=== PATIENT | female | born 1970 | race Caucasian/White ===

== ENCOUNTER 2017-08-22 16:32 | Inpatient (IN) | payer SELFPAY ==
[~2017-08-22] VITALS: Ht 162.6 cm; Wt 105.4 kg
[2017-08-22] MEDS ORDERED: ASPIRIN 81 MG TAB.CHEW PO ONE (17:30)
[2017-08-22] MEDS ORDERED: LORazepam 2 MG/ML VIAL IV ONE (17:30)
[2017-08-22] MEDS ORDERED: 0.9 % SODIUM CHLORIDE 10 ML DISP.SYRIN. IV PRN (17:30)
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
[2017-08-22 18:08] LABS: BASO # 0.1 x10^3/uL (0.0-0.2); BASO % 1 % (0-3); EOS # 0.1 x10^3/uL (0.0-0.7); EOS % 2 % (0-3); HEMATOCRIT 40.8 % (36.0-47.0); LYMPH # 1.7 x10^3/uL (1.0-4.8); LYMPH % 29 % (24-48); MEAN CORPUSCULAR HEMOGLOBIN 31 pg (25-35); MEAN CORPUSCULAR HGB CONC 34 g/dL (31-37); MEAN CORPUSCULAR VOLUME 91 fL (79-100); MONO # 0.4 x10^3/uL (0.0-1.1); MONO % 7 % (0-9); NEUT # 3.8 x10^3uL (1.8-7.7); NEUT % 62 % (31-73); PLATELET COUNT 207 x10^3/uL (140-400); RED BLOOD COUNT 4.49 x10^6/uL (3.50-5.40); RED CELL DISTRIBUTION WIDTH 12.9 % (11.5-14.5); WHITE BLOOD COUNT 6.1 x10^3/uL (4.0-11.0)
[2017-08-22] MEDS: IV NORMAL SALINE 1,000ML 1,000 ML IV SCH (18:14)
--- NOTE | 2017-08-22 18:21 | RAD ---
Indication: Shortness of breath, cough. TECHNIQUE: PA and lateral views of the chest COMPARISON: None FINDINGS: Heart is normal in size. Lungs are clear. No pneumothorax or pleural effusion. Visualized bony thorax is within normal limits. IMPRESSION: No acute cardiopulmonary process. Electronically signed by: Uriah Garvey DO (08/22/2017 6:18 PM) [facility]
[2017-08-22 18:27] LABS: ALBUMIN 4.3 g/dL (3.4-5.0); ALK PHOS 88 U/L (46-116); ALT (SGPT) 20 U/L (14-59); ANION GAP 10 (6-14); AST (SGOT) 15 U/L (15-37); BLOOD UREA NITROGEN 9 mg/dL (7-20); CALCIUM 10.3 mg/dL (8.5-10.1); CARBON DIOXIDE 29 mmol/L (21-32); CHLORIDE 101 mmol/L (98-107); CREATININE 0.8 mg/dL (0.6-1.0); DIRECT BILIRUBIN 0.3 mg/dL (0.0-0.2); GFR 77.2; GLUCOSE 87 mg/dL (70-99); LIPASE 197 U/L (73-393); POTASSIUM 3.2 mmol/L (3.5-5.1); SODIUM 140 mmol/L (136-145); TOTAL PROTEIN 7.6 g/dL (6.4-8.2)
[2017-08-22] MEDS ORDERED: ESCITALOPRAM OX20 MG PO (19:04)
[2017-08-22] MEDS ORDERED: TRAZ50TA15 PO (19:05)
[2017-08-22] MEDS ORDERED: BUSP15TA PO (19:06)
[2017-08-22] MEDS ORDERED: ALPR0.254 PO (19:06)
[2017-08-22] MEDS ORDERED: PANT40TA5 PO (19:07)
[2017-08-22] MEDS ORDERED: LOSA1TAB19 PO (19:07)
[2017-08-22] MEDS ORDERED: ONDANSETRON PF 4 MG/2 ML VIAL. IV PRN (20:00)
[2017-08-22] MEDS ORDERED: BARIUM SULFATE 2.1% 450 ML SUSP PO ONE ×2 (20:15)
[2017-08-22] MEDS ORDERED: POTASSIUM CHLORIDE 20 MEQ/15 ML ORAL LIQUID. PO ONE (20:15)
[2017-08-22 21:09] LABS: BILIRUBIN,URINE NEG (NEG); CLARITY,URINE CLEAR; COLOR,URINE YELLOW; GLUCOSE,URINE NEG (NEG); NITRITE,URINE NEG (NEG); UROBILINOGEN,URINE 0.2 mg/dL (0.2 mg/dL)
[2017-08-22 21:10] LABS: BACTERIA,URINE 0 /HPF (0-FEW); RBC,URINE 0 /HPF (0-2); SQUAMOUS EPITHELIAL CELL,UR OCC /LPF; WBC,URINE OCC /HPF (0-4)
--- NOTE | 2017-08-22 22:06 | RAD ---
Indication:Epigastric abdominal pain and nausea. History of breast, uterine and skin cancer. TECHNIQUE: CT abdomen chest, and pelvis without IV contrast with multiplanar reformats. COMPARISON: None FINDINGS: Limited exam due to lack of IV contrast. CT CHEST: 3.7 x 3.7 cm low attenuating nodule is seen in the right thyroid lobe. Heart is normal in size. No pericardial or pleural effusion. No axillary, mediastinal adenopathy. Evaluation of hilar lymph nodes limited due to lack of IV contrast. Lungs are clear. CT abdomen and pelvis: Noncontrast appearance of the liver, spleen, gallbladder, pancreas, adrenals and kidneys is within normal limits. No retroperitoneal or pelvic adenopathy. No bowel obstruction. Normal appendix. Urinary bladder within normal limits. Status post hysterectomy. No solid adnexal lesions. No free pelvic fluid. No suspicious bony lesion. IMPRESSION: Limited exam due to lack of IV contrast. 1. Low attenuating right thyroid lobe lesion may represent a large colloid cyst. Nonemergent ultrasound of the thyroid recommended. 2. No acute findings. Electronically signed by: Uriah Garvey DO (08/22/2017 10:02 PM) [facility]
[2017-08-22 22:26] VITALS: BP 134/73
[2017-08-22] MEDS ORDERED: DIPH25CA58 PO (23:04)
[2017-08-22] MEDS ORDERED: NAPR220T70 PO (23:04)
[2017-08-22] MEDS: traZODone 50 MG TABLET. PO SCH (23:40)
[2017-08-22] MEDS: busPIRone 15 MG TABLET. PO SCH (23:41)
[2017-08-22] MEDS: MORPHINE SULFATE 4 MG/ML DISP.SYRIN. IV PRN (23:44)
[2017-08-22] MEDS ORDERED: CITALOPRAM 20 MG TABLET. PO SCH (23:45)
[2017-08-23] MEDS ORDERED: PNEUMOCOCCAL VAX SCREEN. MC ONE (00:30)
[2017-08-23] MEDS: MORPHINE SULFATE 4 MG/ML DISP.SYRIN. IV PRN ×4 (01:55→14:44)
[2017-08-23 05:49] VITALS: BP 135/65
[2017-08-23 06:37] LABS: BASO % 1 % (0-3); EOS # 0.1 x10^3/uL (0.0-0.7); EOS % 2 % (0-3); HEMOGLOBIN 12.8 g/dL (12.0-15.5); LYMPH # 2.1 x10^3/uL (1.0-4.8); LYMPH % 40 % (24-48); MEAN CORPUSCULAR HEMOGLOBIN 31 pg (25-35); MEAN CORPUSCULAR HGB CONC 34 g/dL (31-37); MEAN CORPUSCULAR VOLUME 92 fL (79-100); MONO # 0.5 x10^3/uL (0.0-1.1); MONO % 9 % (0-9); NEUT # 2.5 x10^3uL (1.8-7.7); NEUT % 48 % (31-73); PLATELET COUNT 193 x10^3/uL (140-400); RED BLOOD COUNT 4.11 x10^6/uL (3.50-5.40); RED CELL DISTRIBUTION WIDTH 13.3 % (11.5-14.5); WHITE BLOOD COUNT 5.2 x10^3/uL (4.0-11.0)
[2017-08-23 06:43] LABS: CALCIUM 9.4 mg/dL (8.5-10.1); CREATININE 0.7 mg/dL (0.6-1.0); GFR 90.1; POTASSIUM 3.8 mmol/L (3.5-5.1)
[2017-08-23] MEDS: PANTOPRAZOLE 40 MG TABLET. PO SCH (08:32)
[2017-08-23] MEDS: busPIRone 15 MG TABLET. PO SCH ×2 (08:32→20:30)
[2017-08-23] MEDS: LOSARTAN 50 MG TABLET. PO SCH (08:34)
[2017-08-23] MEDS: hydroCHLOROthiazide 12.5 MG CAPSULE PO SCH (08:35)
[2017-08-23] MEDS ORDERED: PNEUMOC CONJ VACC 23-VALENT 0.5 ML VIAL. VAX IM ONE (09:00)
[2017-08-23] MEDS ORDERED: CITALOPRAM 20 MG TABLET. PO SCH (09:00)
[2017-08-23 10:24] VITALS: BP 117/69
[2017-08-23] MEDS: ALPRAZolam 0.25 MG TABLET PO PRN (14:06)
--- NOTE | 2017-08-23 14:26 | EKG ---
[address] [address] Test Date: 2017-08-22 Test Time: 16:51:06 Pat Name: BETY MUNGUIA Department: Room: 120 A Gender: F [employer]: : 1970 Requested By: BILLIE OZUNA Order Number: [id number] Reading MD: Jonah William MD Measurements Intervals [place] Rate: 74 P: 57 KS: 208 QRS: 0 QRSD: 100 T: 21 QT: 392 QTc: 440 Interpretive Statements SINUS RHYTHM Electronically Signed On 08-24-2017 16:41:05 CDT by Jonah William MD
[2017-08-23] MEDS ORDERED: MORPHINE SULFATE 4 MG/ML DISP.SYRIN. IV PRN (14:45)
[2017-08-23 14:56] VITALS: BP 121/76
--- NOTE | 2017-08-23 15:15 | HP ---
ADMIT DATE: 08/23/2017 HISTORY OF PRESENT ILLNESS: The patient is a 47-year-old female patient, who came to the Emergency Room with a complaint of chest pain that described mostly on the left side radiating to the left shoulder and left arm. She rated the pain as 6/10 in severity, but denied any nausea or vomiting. Denied any diaphoresis. Did complain of shortness of breath and feel dizzy. She was seen in the Emergency Room and was extensively investigated. Her EKG showed that she was in sinus rhythm with heart rate of first-degree AV block. She has left atrial enlargement and left axis deviation and also an old Q-waves in the anterior leads, which is likely from the old myocardial infarction. However, there are no ST segment changes consistent with acute cardiac ischemia. Her first set of cardiac enzyme was normal. The patient was admitted to do 2 more sets of cardiac enzyme and to consult the cardiology team. PAST MEDICAL HISTORY: Significant for rheumatoid arthritis, systemic lupus erythematosus, hypertension. She has cancer of the uterus, cervix, breast, skin and brain. She apparently metastatic brain tumor, treated with radiation therapy. She also has a history of pericarditis and according to her myocardial infarction in 1997. PAST SURGICAL HISTORY: Significant for hysterectomy, tonsillectomy, adenoidectomy, 4 , lumpectomy, 2 dental surgeries and laryngotomy x 5. ALLERGIES: She is allergic to IODINATED CONTRAST, ORAL AND IV DYE, PENICILLIN, SULFA, ACETAMINOPHEN, BANANA, CIPROFLOXACIN, CLARITHROMYCIN, STRAWBERRY. FAMILY HISTORY: She has 2 brothers, who are younger. Her youngest brother has skin cancer x 3 and he is also known to have . Her father is still alive and is known to have diabetes, hypertension, rheumatoid arthritis, and hyperlipidemia. Her mother is still alive, has diabetes, hypertension, osteoarthritis and hyperlipidemia. SOCIAL HISTORY: She is , has 2 sons and 2 daughters. She never smoked, does not drink alcohol or use any drugs. She is working for the [employer] contracted with [employer]. REVIEW OF SYSTEMS: The patient denied any blurring of vision, cataract, glaucoma or macular degeneration. Denied any earache, tinnitus or sensorineural deafness. Denied any nosebleeds, stuffy nose or postnasal drip. Denied any sore throat, sore tongue, toothache, hoarseness of voice or difficulty swallowing. Denied any nausea, vomiting, diarrhea or constipation. Denied any hematemesis, melena or hematochezia. Denied any dysuria, frequency or hematuria. Did may have chest pain. No cough or phlegm. Did complain of shortness of breath. Denied any orthopnea or paroxysmal dyspnea. Denied any cough, phlegm or hemoptysis. OBJECTIVE: GENERAL: On examining her, she looked well and was clearly in no apparent respiratory distress, no pallor, jaundice, cyanosis, or thyromegaly. No jugular venous distension. No limb edema. VITAL SIGNS: Her heart rate was 86 and blood pressure 141/61, temperature was 98, respiratory rate was 16 and oxygen saturation was 100% on room air. HEAD, EYES, EARS, NOSE AND THROAT: Showed normocephalic, atraumatic. NECK: Supple. HEART: Showed normal first and second heart sounds with no gallop, rub or murmur. CHEST: Clear to auscultation. No crepitation or rhonchi. ABDOMEN: Distended, soft, nontender. NEUROLOGIC: She is awake, alert, responding appropriately. All cranial nerves intact. EXTREMITIES: She moves extremities without difficulty. She ambulates without assistance or assistive devices. While in the Emergency Room, she had lab work done showed a white cell count of 6100, hemoglobin 14, hematocrit 41, MCV 91, and platelet count 107,000. Her chemistry showed a serum sodium 140, potassium 3.2, chloride 101, bicarbonate 29, anion gap of 10, BUN 9, creatinine 0.9, estimated GFR was 77, glucose 87, calcium was 10.3, magnesium was 2. Total bilirubin 2. However, AST, ALT, alkaline phosphatase were normal. Her troponin was less than 0.017 and total protein was 7.6, albumin was 4.3. Her D-dimer was 0.26. Urinalysis was essentially unremarkable. Her EKG showed that she has in sinus rhythm with prolonged MN interval. Chest x-ray showed no evidence of any acute cardiopulmonary process. CT scan of the chest, abdomen and pelvis showed that there is low attenuating right thyroid lobe lesions were present a large colloid cyst, nonemergent ultrasound and thyroid recommended no acute finding. Plan is to admit the patient to do 2 more sets of cardiac enzyme, consult the Cardiology and decide on further management accordingly. EMILY GLOVER MD DR: Diane JOB#: [id number] / [id number]
[2017-08-23 19:13] VITALS: BP 129/69
[2017-08-23] MEDS: traZODone 50 MG TABLET. PO SCH (20:30)
[2017-08-23] MEDS ORDERED: ESCITALOPRAM 20MG TAB PO SCH (21:00)
[2017-08-23] MEDS: ACETAMINOPHEN 325 MG TABLET PO PRN (21:36)
[2017-08-23 23:01] VITALS: BP 107/57
[2017-08-24] MEDS: ACETAMINOPHEN 325 MG TABLET PO PRN (03:47)
[2017-08-24 05:04] VITALS: BP 114/65
[2017-08-24] MEDS: ALPRAZolam 0.25 MG TABLET PO PRN (06:13)
[2017-08-24] MEDS: busPIRone 15 MG TABLET. PO SCH (08:24)
[2017-08-24] MEDS: LOSARTAN 50 MG TABLET. PO SCH (08:24)
[2017-08-24] MEDS: hydroCHLOROthiazide 12.5 MG CAPSULE PO SCH (08:25)
[2017-08-24] MEDS: PANTOPRAZOLE 40 MG TABLET. PO SCH (08:25)
[2017-08-24] MEDS ORDERED: traMADol 50 MG TABLET PO PRN (09:45)
[2017-08-24] MEDS ORDERED: diphenhydrAMINE HCL 25 MG CAPSULE PO PRN (09:45)
[2017-08-24 10:59] VITALS: BP 147/74
--- NOTE | 2017-08-24 13:05 | CARD ---
MR#: [id number] Date of Study: 08/24/2017 Ordering Physician: ESTEFANY TORRES, Referring Physician: EMILY GLOVER, Tech: CHRIS Marrufo APPROVED REPORT EXAM: Two-dimensional and M-mode echocardiogram with Doppler and color Doppler. Other Information Quality : AverageHR: 60bpm INDICATION Chest Pain 2D DIMENSIONS RVDd3.2 (2.9-3.5cm)Left Atrium(2D)3.5 (1.6-4.0cm) IVSd1.1 (0.7-1.1cm)Aortic Root(2D)2.7 (2.0-3.7cm) LVDd4.7 (3.9-5.9cm)LVOT Diameter2.0 (1.8-2.4cm) PWd1.4 (0.7-1.1cm)LVDs2.5 (2.5-4.0cm) FS (%) 46.5 %SV81.2 ml LVEF(%)77.9 (>50%) Aortic Valve AoV Peak Juve.151.7cm/sAoV VTI36.9cm AO Peak GR.9.2mmHgLVOT Peak Juve.134.5cm/s LVOT VTI 31.86cmAO Mean GR.5mmHg ANGELA (VMAX)2.55gn5MLO (VTI)2.71cm2 Mitral Valve MV E Gucimpkd602.6cm/sMV A Velocity0.1cm/s E/A Vsnhl4763.0 Pulmonary Vein S1 Qcmtblij23.8cm/sD2 Uljnvahz43.9cm/s LEFT VENTRICLE The left ventricle is normal size. There is mild hypertrophy of the LVPW. The left ventricular systol ic function is normal and the ejection fraction is within normal range. EF 65% There is normal LV seg mental wall motion. The left ventricular diastolic function and filling is normal for age. RIGHT VENTRICLE The right ventricle is normal size. The right ventricular systolic function is normal. ATRIA The left atrium size is normal. The right atrium size is normal. The interatrial septum is intact wit h no evidence for an atrial septal defect or patent foramen ovale as noted on 2-D or Doppler imaging. AORTIC VALVE The aortic valve is thickened but opens well. Doppler and Color Flow revealed no significant aortic r egurgitation. There is no significant aortic valvular stenosis. There is no aortic valvular vegetatio n. MITRAL VALVE The mitral valve is thickened but opens well. There is no evidence of mitral valve prolapse. There is no mitral valve stenosis. Doppler and Color-flow revealed trace to mild mitral regurgitation. TRICUSPID VALVE The tricuspid valve is not well visualized. Doppler and Color Flow revealed no tricuspid valve regurg itation noted. There is no tricuspid valve prolapse or vegetation. There is no tricuspid valve stenos is. PULMONIC VALVE The pulmonic valve is not well visualized. Doppler and Color Flow revealed no pulmonic valvular regur gitation. There is no pulmonic valvular stenosis. GREAT VESSELS The aortic root is normal in size. The IVC collapses <50% with inspiration. PERICARDIAL EFFUSION There is no pleural effusion. There is no evidence of significant pericardial effusion. Critical Notification Critical Value: No <Conclusion> The left ventricular systolic function is normal and the ejection fraction is within normal range. EF 65% There is normal LV segmental wall motion. Signed by : Estefany Torres, Electronically Approved : 08/24/2017 13:05:10
--- NOTE | 2017-08-24 16:11 | PDOC ---
PROVIDER NOTE PROVIDER NOTE PROVIDER NOTE Late entry for 08/23/2017 Cardiology consultation note Reason for consultation chest pain Pleasant 47-year-old woman who comes into the hospital in the setting of chest pain. She had this chest pain for approximately 2 days prior to admission. Denies any previous cardiac issues. No associated nausea, vomiting, diaphoresis , fevers or chills. No palpitations or syncopal events. Denies any exertional dyspnea, orthopnea or PND. Past medical history is notable for uterine cancer Social history is unremarkable. Patient denies any alcohol, tobacco or illicit drug use. Family history is noncontributory Allergies to multiple medications as noted. Review systems is negative for 10 out of 14 systems reviewed unless otherwise mentioned above in history of present illness. Physical examination Vital signs stable Head and neck exam unremarkable Cardiac regular rate and rhythm without any murmurs rubs gallops lungs are clear to auscultation bilaterally. Abdomen is obese nontender nondistended Extremities no clubbing cyanosis or edema Neurologic no focal deficits Diagnostic studies EKG is unremarkable Labs are unremarkable. Echocardiogram demonstrates normal LV systolic function without significant wall motor mellitus. Impression: 1. Atypical chest pain without any alarm symptoms. Normal enzymes and EKG without any significant modalities. In light of the fact that her echocardiogram demonstrates normal regional wall motion can safely be discharged with reevaluation outpatient basis if she has any recurrent chest pain. Thank you for this consultation. ESTEFANY TORRES MD Aug 24, 2017 16:11
--- NOTE | 2017-08-24 22:56 | PN ---
DATE: 08/24/2017 SUBJECTIVE: The patient is sitting comfortably in her chair in no apparent distress. She has no further episode of chest pain. Did complain of headache that has responded to tramadol. She has had 3 sets of cardiac enzymes that were negative, showed no evidence of myocardial infarction. Her EKG showed that she was in sinus rhythm at 74 beats per minute. Her NM interval was slightly prolonged at 208 indicating that she has first-degree AV block. She has had an echocardiogram, which basically showed that she has normal left ventricular systolic function with normal ejection fraction of 65%. She has normal left ventricular segmental wall motion. PHYSICAL EXAMINATION: GENERAL: When I examined her today, she looked well and was clearly in no apparent respiratory distress, pale, but no jaundice, cyanosis or thyromegaly. No jugular venous distension. No limb edema. VITAL SIGNS: Her heart rate was 60, blood pressure 147/74, temperature was 98.1, respiratory rate was 15 and oxygen saturation was 97%. The rest of clinical examination is unremarkable. LABORATORY DATA: So far showed a white cell count of 5200, hemoglobin 13, hematocrit 38, MCV 92 and platelet count 293,000. Her chemistry showed serum sodium of 141, potassium 3.8, chloride 105, bicarbonate 29, anion gap of 7, BUN 7, creatinine 0.7. Estimated GFR was 90 mL per minute. ASSESSMENT: Chest pain, so far no EKG evidence of ischemic changes. Three sets of cardiac enzymes were normal. Echocardiogram showed ejection fraction of 65%. Other medical problems include rheumatoid arthritis, systemic lupus erythematosus, hypertension. The patient has survived multiple cancers including that of uterus, cervix, breast and skin and brain. She has also history of pericarditis and according to her also history of myocardial infarction in 1997. EMILY GLOVER MD DR: JOCELYNN/yovany JOB#: [id number] / [id number]
--- NOTE | 2017-08-26 03:55 | DS ---
DATE OF DISCHARGE: 08/24/2017 HOSPITAL COURSE: The patient is a 47-year-old female patient. The patient was admitted with a complaint of chest pain that she describes as a dull aching, mostly left-sided, radiating to the left shoulder and left arm, rated about 6/10 in severity; however, she denied any nausea, vomiting. Denied any diaphoresis. Did complain of shortness of breath, feeling dizzy. She was evaluated in the Emergency Room. Her EKG showed no evidence of any ischemic changes, but she has first-degree heart block, left atrial enlargement and left axis deviation. She has had 3 sets of cardiac enzymes that were negative. She had an echocardiogram done, which showed that she has normal left ventricular systolic function, normal ejection fraction. Ejection fraction more than 65%, normal left ventricular segmental wall motion. We did consult the cardiology team and they recommended that the patient can be discharged safely home given that all her labs, EKGs and echocardiogram were within normal limits, and her risk factor for premature coronary artery disease does not warrant any further ischemic workup. PHYSICAL EXAMINATION: GENERAL: When I examined her today, she looked well and was clearly in no apparent respiratory distress. She was pale. No jaundice, cyanosis, or thyromegaly. No jugular venous distension. No lower limb edema. VITAL SIGNS: Her heart rate was 60, blood pressure 147/74, temperature was 98.1, respiratory rate was 18 and oxygen saturation was 97% on room air. HEAD, EYES, EARS, NOSE AND THROAT: Showed she is normocephalic, atraumatic. NECK: Supple. HEART: Showed normal first and second heart sounds with no gallop, rub or murmur. CHEST: Clear to auscultation. No crepitation or rhonchi. ABDOMEN: Distended, soft, nontender. No guarding or rigidity. No organomegaly. All hernial orifices intact. Bowel sounds normal. NEUROLOGIC: She was awake, alert, responding appropriately. All cranial nerves are intact. She moves extremities without difficulty. She ambulates without assistance or assistive devices. LABORATORY WORK: On discharge date showed a serum sodium 141, potassium 3.8, chloride 105, bicarbonate 29, anion gap of 7, BUN 7, creatinine 0.7, estimated GFR was 90 mL per minute. Her glucose was 93, calcium was 9.4. Her TSH was 1.858 and white cell count was 5200, hemoglobin 13, hematocrit 38, MCV 92, and platelet count of 193,000. DISCHARGE MEDICATIONS: The patient was discharged home to continue on following medication: Alprazolam 0.25 mg twice a day, buspirone 15 mg twice a day, diphenhydramine 25 mg at bedtime, escitalopram oxalate 20 mg once a day, losartan/hydrochlorothiazide one tablet daily, naproxen 220 mg twice a day, Protonix 40 mg daily and trazodone 50 mg at bedtime. FINAL DISCHARGE DIAGNOSIS: Chest pain, myocardial infarction ruled out, hypertension, depression. EMILY GLOVER MD DR: JOCELYNN/yovany JOB#: [id number] / [id number]
== END 2017-08-24 15:00 | disposition home or self-care (01) | DRG 313 ==
LOC: ER 16:32 → 1 SOUTH 19:30
PROVIDERS: ADMIT Internal Medicine; ATTEND Internal Medicine
DX: R07.89 Other chest pain (principal); I25.2 Old myocardial infarction; M32.9 Systemic lupus erythematosus, unspecified; I11.9 Hypertensive heart disease without heart failure; E87.6 Hypokalemia; F32.9 Major depressive disorder, single episode, unspecified; I44.0 Atrioventricular block, first degree; F41.9 Anxiety disorder, unspecified; J45.909 Unspecified asthma, uncomplicated; F43.10 Post-traumatic stress disorder, unspecified; M06.9 Rheumatoid arthritis, unspecified; R51 Headache; Z90.710 Acquired absence of both cervix and uterus; Z90.89 Acquired absence of other organs; Z90.10 Acquired absence of unspecified breast and nipple; Z85.3 Personal history of malignant neoplasm of breast; Z85.43 Personal history of malignant neoplasm of ovary; Z85.42 Personal history of malignant neoplasm of other parts of uterus; Z92.21 Personal history of antineoplastic chemotherapy; Z92.3 Personal history of irradiation; Z85.828 Personal history of other malignant neoplasm of skin; Z85.841 Personal history of malignant neoplasm of brain; Z91.041 Radiographic dye allergy status; Z88.5 Allergy status to narcotic agent; Z91.018 Allergy to other foods; Z88.0 Allergy status to penicillin; Z88.2 Allergy status to sulfonamides; Z80.8 Family history of malignant neoplasm of other organs or systems; Z83.3 Family history of diabetes mellitus; Z82.49 Family history of ischemic heart disease and other diseases of the circulatory system; Z82.61 Family history of arthritis
CPT/HCPCS: 36415; 71046; 71250; 74176; 80048; 80076; 81001; 82553; 83690; 83735; 83880; 84443; 84484; 85025; 85379; 90732; 93005; 93306; 96374; 96375; J2060; J2270; J3010; Q0163; 99285-25; J7030

== ENCOUNTER 2019-12-23 09:58 | Emergency (ER) | payer OTHER ==
[~2019-12-23] VITALS: Ht 162.6 cm; Wt 106.4 kg
[~2019-12-23 09:58] MED LIST: ALPR0.254 PO; BUSP15TA PO; DIPH25CA58 PO; ESCITALOPRAM OX20 MG PO; LOSA1TAB19 PO; NAPR220T70 PO; PANT40TA5 PO; TRAZ-120 PO
[2019-12-23 11:01] LABS: BACTERIA,URINE FEW /HPF (0-FEW); BILIRUBIN,URINE NEG (NEG); CLARITY,URINE CLEAR; COLOR,URINE YELLOW; GLUCOSE,URINE NEG (NEG); NITRITE,URINE NEG (NEG); SQUAMOUS EPITHELIAL CELL,UR MANY /LPF
[2019-12-23] MEDS ORDERED: OXYC1TAB15 PO (11:10)
[2019-12-23] MEDS ORDERED: PRED20TA PO (11:10)
--- NOTE | 2019-12-23 11:10 | PHYS DOC ---
Past History Past Medical History: Anxiety, Asthma, Depression, Hypertension, Other Additional Past Medical Histor: C3C4 COMPRESSION FX, URINARY REFLUX Past Surgical History: , Hysterectomy, Tonsillectomy, Other Additional Past Surgical Histo: L ROTATOR CUFF, R-BREAST LUMPECTOMY Smoking: Non-smoker Alcohol Use: None Drug Use: None General Adult EDM: Chief Complaint: HEADACHE HPI: HPI: Patient is a [age] year old [sex] who presents with [] Review of Systems: Review of Systems: Constitutional: Denies fever or chills Eyes: Denies change in visual acuity HENT: Denies nasal congestion or sore throat Respiratory: Denies cough or shortness of breath Cardiovascular: Denies chest pain or edema GI: Denies abdominal pain, nausea, vomiting, bloody stools or diarrhea : Denies dysuria Musculoskeletal: Denies back pain or joint pain Integument: Denies rash Neurologic: Denies headache, focal weakness or sensory changes Endocrine: Denies polyuria or polydipsia Lymphatic: Denies swollen glands Psychiatric: Denies depression or anxiety Heart Score: Risk Factors: Risk Factors: DM, Current or recent (<one month) smoker, HTN, HLP, family history of CAD, obesity. Risk Scores: Score 0 - 3: 2.5% MACE over next 6 weeks - Discharge Home Score 4 - 6: 20.3% MACE over next 6 weeks - Admit for Clinical Observation Score 7 - 10: 72.7% MACE over next 6 weeks - Early Invasive Strategies Current Medications: Current Meds: Current Medications Medications (Trade) Dose Ordered Sig/Russell Start Time Stop Time Status Last Admin Dose Admin Dexamethasone (Decadron) 10 mg 1X ONCE 12/23/19 11:15 12/23/19 11:16 Allergies: Allergies: Allergies Coded Allergies Type Severity Reaction Last Updated Verified banana Allergy Severe Anaphylaxis 08/23/17 Yes fish derived Allergy Severe 08/23/17 Yes maite Allergy Severe 08/23/17 Yes nut - unspecified Allergy Severe Anaphylaxis 08/23/17 Yes strawberry Allergy Severe Anaphylaxis 08/23/17 Yes Iodinated Contrast- Oral and IV Dye Allergy Intermediate 08/22/17 Yes Penicillins Allergy Intermediate 08/22/17 Yes Sulfa (Sulfonamide Antibiotics) Allergy Intermediate 08/22/17 Yes ciprofloxacin Allergy Intermediate 08/22/17 Yes clarithromycin Allergy Intermediate 4/10/18 Yes hydrocodone Allergy Intermediate 08/22/17 Yes ibuprofen Allergy Intermediate 08/22/17 Yes latex Allergy Intermediate 08/22/17 Yes levofloxacin Allergy Intermediate 08/22/17 Yes shellfish derived Allergy Intermediate 08/22/17 Yes Physical Exam: PE: Constitutional: Well developed, well nourished, no acute distress, non-toxic appearance. [] HENT: Normocephalic, atraumatic, bilateral external ears normal, oropharynx moist, no oral exudates, nose normal. [] Eyes: PERRLA, EOMI, conjunctiva normal, no discharge. [] Neck: Normal range of motion, no tenderness, supple, no stridor. [] Cardiovascular:Heart rate regular rhythm, no murmur [] Lungs & Thorax: Bilateral breath sounds clear to auscultation [] Abdomen: Bowel sounds normal, soft, no tenderness, no masses, no pulsatile masses. [] Skin: Warm, dry, no erythema, no rash. [] Back: No tenderness, no CVA tenderness. [] Extremities: No tenderness, no cyanosis, no clubbing, ROM intact, no edema. [] Neurologic: Alert and oriented X 3, normal motor function, normal sensory function, no focal deficits noted. [] Psychologic: Affect normal, judgement normal, mood normal. [] Current Patient Data: Vital Signs: Vital Signs Date Time Temp Pulse Resp B/P (MAP) Pulse Ox O2 Delivery O2 Flow Rate FiO2 12/23/19 10:05 98.8 70 20 148/83 (104) 98 Room Air EKG: EKG: [] Radiology/Procedures: Radiology/Procedures: [] Course & Med Decision Making: Course & Med Decision Making Pertinent Labs and Imaging studies reviewed. (See chart for details) [] Dragon Disclaimer: AppsFlyer Disclaimer: This electronic medical record was generated, in whole or in part, using a voice recognition dictation system. Departure Departure: Impression: Primary Impression: Headache Qualified Codes: R51 - Headache Disposition: 01 HOME/RESIDENCE PRIOR TO ADM Condition: STABLE Referrals: ROSENDO THURSTON MD (PCP) Patient Instructions: Headache, FAQs, Spinal Headache Scripts Prednisone (PREDNISONE) 20 Mg Tablet 2 TAB PO DAILY for Inflammation, #8 TAB Start this prescription tomorrow, Monday12/24/19 Prov: BOBBY JON DO 12/23/19 Oxycodone Hcl/Acetaminophen (PERCOCET 5-325 MG TABLET ) 1 Each Tablet 0.5-1 TAB PO PRN Q6HRS PRN for PAIN, #10 TAB Prov: BOBBY JON DO 12/23/19 Justification of Admission: Justification of Admission: Justification of Admission Dx: N/A BOBBY JON DO Dec 23, 2019 11:10
[2019-12-23 11:11] VITALS: BP 145/74
[2019-12-23] MEDS ORDERED: DEXAMETHASONE 4 MG TABLET PO ONE (11:15)
== END 2019-12-23 11:15 | disposition home or self-care (01) ==
LOC: ER 09:58
DX: R51 Headache (principal); R39.81 Functional urinary incontinence; J45.909 Unspecified asthma, uncomplicated; I10 Essential (primary) hypertension; F41.9 Anxiety disorder, unspecified; F32.9 Major depressive disorder, single episode, unspecified; Z91.018 Allergy to other foods; Z91.041 Radiographic dye allergy status; Z88.0 Allergy status to penicillin; Z88.2 Allergy status to sulfonamides; Z88.1 Allergy status to other antibiotic agents; Z88.6 Allergy status to analgesic agent; Z88.5 Allergy status to narcotic agent; Z91.040 Latex allergy status; Z91.013 Allergy to seafood
CPT/HCPCS: 81001; 99283; J8540

== ENCOUNTER 2020-06-27 19:22 | Observation (INO) | payer OTHER ==
[~2020-06-27] VITALS: Ht 162.6 cm; Wt 110.9 kg
[~2020-06-27 19:22] MED LIST changes: +OXYC1TAB15 PO; -PANT40TA5 PO; +PANT40TA6 PO; +PRED20TA PO
--- NOTE | 2020-06-27 19:55 | PHYS DOC ---
Past History Past Medical History: Anxiety, Asthma, Depression, Hypertension, Other Additional Past Medical Histor: C3C4 COMPRESSION FX, URINARY REFLUX (MUNIR MERAZ APRN) Past Surgical History: , Hysterectomy, Tonsillectomy, Other Additional Past Surgical Histo: L ROTATOR CUFF, R-BREAST LUMPECTOMY (MUNIR MERAZ APRN) Smoking: Non-smoker Alcohol Use: None Drug Use: None (MUNIR MERAZ APRN) Adult General Chief Complaint Chief Complaint: DIZZY/LIGHT HEADED HPI HPI Patient is a 50-year-old female patient with history of anxiety, depression, hypertension, cervical cancer, among other illnesses who presents to the ED today complaining of dizziness with ringing in the ears. Patient states she was walking to the bathroom when she felt dizzy and had ringing in her ears was light headed and also has pain btwn her shoulder blades. She states she had cervical fusion on June 03, 2020 and called the surgeon who did the procedure who requested her to come to the ED for to be worked up for blood clot. Denies any chest pain or shortness of. (MUNIR MERAZ APRN) Review of Systems Review of Systems Constitutional: Denies fever or chills [] Eyes: Denies change in visual acuity, redness, or eye pain [] HENT: Denies nasal congestion or sore throat [] Respiratory: Denies cough or shortness of breath [] Cardiovascular: No additional information not addressed in HPI [] GI: Denies abdominal pain, nausea, vomiting, bloody stools or diarrhea [] : Denies dysuria or hematuria [] Musculoskeletal: Denies back pain or joint pain [] Integument: Denies rash or skin lesions [] Neurologic: Reports dizziness and ringing in the ears. Denies headache, focal weakness or sensory changes [] All other systems were reviewed and found to be within normal limits, except as documented in this note. (MUNIR MERAZ APRN) Allergies Allergies Allergies Coded Allergies Type Severity Reaction Last Updated Verified banana Allergy Severe Anaphylaxis 06/27/20 Yes fish derived Allergy Severe 06/27/20 Yes maite Allergy Severe 06/27/20 Yes nut - unspecified Allergy Severe Anaphylaxis 06/27/20 Yes strawberry Allergy Severe Anaphylaxis 06/27/20 Yes Iodinated Contrast Media Allergy Intermediate 06/27/20 Yes Penicillins Allergy Intermediate 08/22/17 Yes Sulfa (Sulfonamide Antibiotics) Allergy Intermediate 08/22/17 Yes ciprofloxacin Allergy Intermediate 08/22/17 Yes clarithromycin Allergy Intermediate 06/27/20 Yes hydrocodone Allergy Intermediate 06/27/20 Yes ibuprofen Allergy Intermediate 06/27/20 Yes latex Allergy Intermediate 06/27/20 Yes levofloxacin Allergy Intermediate 06/27/20 Yes shellfish derived Allergy Intermediate 06/27/20 Yes (MUNIR MERAZ APRN) Physical Exam Physical Exam Constitutional: Well developed, well nourished, no acute distress, non-toxic appearance. [] HENT: Normocephalic, atraumatic, bilateral external ears normal, oropharynx moist, no oral exudates, nose normal. [] Eyes: PERRLA, EOMI, conjunctiva normal, no discharge. [] Neck: Normal range of motion, no tenderness, supple, no stridor. [] Cardiovascular:Heart rate regular rhythm, no murmur [] Lungs & Thorax: Bilateral breath sounds clear to auscultation [] Abdomen: Bowel sounds normal, soft, no tenderness, no masses, no pulsatile masses. [] Skin: Warm, dry, no erythema, no rash. [] Back: No tenderness, no CVA tenderness. [] Extremities: No tenderness, no cyanosis, no clubbing, ROM intact, no edema. [] Neurologic: Alert and oriented X 3, normal motor function, normal sensory function, no focal deficits noted. Cranial nerves II through XII intact Psychologic: Affect normal, judgement normal, mood normal. [] (MUNIR MERAZ APRN) EKG EKG [address] Monteiro sinus rhythm HR58 no STEMI[] (MUNIR MERAZ APRN) Radiology/Procedures Radiology/Procedures [] (MUNIR MERAZ APRN) Radiology/Procedures [facility] [address] [place] [id number] IMAGING REPORT Signed PATIENT: BETY MUNGUIA ACCOUNT: [id number] : 1970 LOCATION: ER AGE: 50 SEX: F EXAM STATUS: PRE ER ORD. PHYSICIAN: MUNIR MERAZ APRN REASON: HTN, ASTHMA, H/O BREAST CANCER PROCEDURE: PORTABLE CHEST 1V XR CHEST 1V INDICATION: Reason: HTN, ASTHMA, H/O BREAST CANCER / Spl. Instructions: / History: . COMPARISON STUDY: Radiograph 08/22/2017. FINDINGS: Lungs: Normal lung volume. No pulmonary mass or consolidation. The tracheobronchial tree and hilar structures are normal. Pleura: No pleural effusion or pneumothorax. Heart and Mediastinum: The cardiomediastinal silhouette is normal. The great vessels of the thorax are normal. IMPRESSION: No acute cardiopulmonary process. Electronically signed by: Mukesh Sharif MD (06/27/2020 8:22 PM) [facility] DICTATED AND SIGNED BY: MUKESH SHARIF MD DATE: 06/27/202020 CC: ROSENDO THURSTON MD; MUNIR MERAZ APRN ~MTH0 0 (JESSICA GIBSON MD) Heart Score Risk Factors: Risk Factors: DM, Current or recent (<one month) smoker, HTN, HLP, family h istory of CAD, obesity. Risk Scores: Risk Factors: DM, Current or recent (<one month) smoker, HTN, HLP, family history of CAD, obesity. (MUNIR MERAZ APRN) Course & Med Decision Making Course & Med Decision Making Pertinent Labs and Imaging studies reviewed. (See chart for details) This is a 50-year-old female patient presented to the ED today complaining of dizziness, lightheadness, ringing in the ears and pain between her shoulder blades that began today. Patient states she had anterior cervical fusion on June 03, 2020, she called the surgeon who told her to come to the ED to be evaluated for blood clot. [address] Monteiro (MUNIR MERAZ APRN) Course & Med Decision Making See Munir Meraz APRN chart for details [address] [address] IMAGING REPORT Signed PATIENT: BETY MUNGUIA ACCOUNT: [id number] : 1970 LOCATION: [address] [place] [address] AGE: 50 SEX: F EXAM STATUS: ADM IN ORD. PHYSICIAN: JESSICA GIBSON MD REASON: DIZZY, NECK PAIN PROCEDURE: CT HEAD AND CERVICAL SPINE WO CT scan of the head without contrast 06/27/2020 Clinical History: Dizziness. Technique: Unenhanced, contiguous, 5 mm axial sections were obtained through the head. One or more of the following individualized dose reduction techniques were utilized for this study: 1. Automated exposure control. 2. Adjustment of the mA and/or kV according to patient size. 3. Use of iterative reconstruction technique. Findings: The ventricles and sulci are within normal limits in size and configuration. No acute parenchymal abnormality is seen. No extra-axial fluid collection is noted. No skull fracture is seen. Impression: No acute intracranial abnormality is seen. CT scan of the cervical spine without contrast 06/27/2020 Clinical history: Neck pain. Technique: Unenhanced, contiguous, 0.625 mm axial sections were obtained through the cervical spine. Axial, coronal and sagittal reconstructed images were obtained. One or more of the following individualized dose reduction techniques were utilized for this study: 1. Automated exposure control. 2. Adjustment of the mA and/or kV according to patient size. 3. Use of iterative reconstruction technique. Findings: Sagittal and coronal reconstructed images demonstrate straightening of the normal cervical lordosis. The patient is post anterior fusion using an anterior plate, bone screws and bone graft material at C3-4. Degenerative changes consisting of varying degrees of disc space narrowing, vertebral endplate sclerosis and minimal to mild anterior and posterior vertebral body osteophyte formation are seen involving the C4-5, C5-6, C6-7 and C7-T1 disc spaces. No fracture or subluxation of the cervical vertebrae is seen. Degenerative changes are seen involving the uncovertebral and facet joints throughout the mid and lower cervical disc spaces. No area of significant central spinal canal or neural foraminal stenosis is seen. IMPRESSION: 1. Post anterior fusion at C3-4. 2. Degenerative changes are seen throughout the cervical spine. These findings do not result in significant central spinal canal or neural foraminal stenosis. No acute osseous abnormality is seen. Electronically signed by: Nicholas Keita MD (06/27/2020 11:44 PM) [id number] DICTATED AND SIGNED BY: NICHOLAS KEITA MD DATE: 06/27/20 5559 CC: ROSENDO THURSTON MD; JESSICA GIBSON MD ~MTH0 0 Discussed presentation, testing and tx. plan with Dr. Thurston- Admit to his service Impression: 1. Dizzy 2. Bradycardia 3. Hypokalemia 2.8 4. Hypomagnesiumk 1.7 5. Dehydration 6. Hx. of Multiple Allergies- Med and Foods (JESSICA GIBSON MD) Saima Disclaimer Dragandres Disclaimer This electronic medical record was generated, in whole or in part, using a voice recognition dictation system. (MUNIR MERAZ APRN) Departure Departure: Impression: Primary Impression: Dizziness Referrals: ROSENDO THURSTON MD (PCP) Saima Disclaimer This chart was dictated in whole or in part using Voice Recognition software in a busy, high-work load, and often noisy Emergency Department environment. It may contain unintended and wholly unrecognized errors or omissions. (JESSICA GIBSON MD) MUNIR MERAZ APRN Jun 27, 2020 19:55 JESSICA GIBSON MD Jun 27, 2020 22:36
[2020-06-27] MEDS ORDERED: IV NORMAL SALINE 1,000ML 1,000 ML IV ONE ×2 (20:15→21:45)
--- NOTE | 2020-06-27 20:24 | RAD ---
XR CHEST 1V INDICATION: Reason: HTN, ASTHMA, H/O BREAST CANCER / Spl. Instructions: / History: . COMPARISON STUDY: Radiograph 08/22/2017. FINDINGS: Lungs: Normal lung volume. No pulmonary mass or consolidation. The tracheobronchial tree and hilar st ructures are normal. Pleura: No pleural effusion or pneumothorax. Heart and Mediastinum: The cardiomediastinal silhouette is normal. The great vessels of the thorax ar e normal. IMPRESSION: No acute cardiopulmonary process. Electronically signed by: Ronny Sharif MD (06/27/2020 8:22 PM) [facility]
[2020-06-27 20:36] LABS: BASO # 0.1 x10^3/uL (0.0-0.2); BASO % 1 % (0-3); EOS # 0.1 x10^3/uL (0.0-0.7); EOS % 3 % (0-3); HEMATOCRIT 39.6 % (36.0-47.0); HEMOGLOBIN 13.3 g/dL (12.0-15.5); LYMPH # 1.5 x10^3/uL (1.0-4.8); LYMPH % 31 % (24-48); MEAN CORPUSCULAR HEMOGLOBIN 30 pg (25-35); MEAN CORPUSCULAR HGB CONC 34 g/dL (31-37); MEAN CORPUSCULAR VOLUME 90 fL (79-100); MONO # 0.6 x10^3/uL (0.0-1.1); MONO % 12 % (0-9); NEUT # 2.5 x10^3uL (1.8-7.7); NEUT % 53 % (31-73); PLATELET COUNT 250 x10^3/uL (140-400); RED CELL DISTRIBUTION WIDTH 13.3 % (11.5-14.5); WHITE BLOOD COUNT 4.9 x10^3/uL (4.0-11.0)
[2020-06-27 21:42] LABS: CLARITY,URINE CLEAR; COLOR,URINE YELLOW
[2020-06-27 21:43] LABS: BILIRUBIN,URINE NEG (NEG); GLUCOSE,URINE NEG (NEG); NITRITE,URINE NEG (NEG)
--- NOTE | 2020-06-27 21:50 | EKG ---
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
--- NOTE | 2020-06-27 21:51 | EKG ---
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
[2020-06-27 21:54] LABS: BARBITURATES NEG (NEG); BENZODIAZEPINES NEG (NEG); CANNABINOIDS NEG (NEG); COCAINE NEG (NEG); METHADONE NEG (NEG); OPIATES NEG (NEG); PHENCYCLIDINE NEG (NEG)
[2020-06-27 21:56] LABS: ALBUMIN 3.3 g/dL (3.4-5.0); ALBUMIN/GLOBULIN RATIO 1.1 (1.0-1.7); ALK PHOS 73 U/L (46-116); ALT (SGPT) 24 U/L (14-59); ANION GAP 8 (6-14); AST (SGOT) 19 U/L (15-37); BLOOD UREA NITROGEN 13 mg/dL (7-20); BUN/CREATININE RATIO 9 (6-20); CALCIUM 9.6 mg/dL (8.5-10.1); CARBON DIOXIDE 29 mmol/L (21-32); CHLORIDE 103 mmol/L (98-107); CREATININE 1.5 mg/dL (0.6-1.0); GFR 36.9; GLUCOSE 102 mg/dL (70-99); MAGNESIUM 1.7 mg/dL (1.8-2.4); SODIUM 140 mmol/L (136-145); TOTAL BILIRUBIN 1.3 mg/dL (0.2-1.0); TOTAL PROTEIN 6.2 g/dL (6.4-8.2)
[2020-06-27 21:57] LABS: AMPHETAMINE/METHAMPHETAMINE NEG (NEG)
[2020-06-27 22:00] LABS: POTASSIUM 2.8 mmol/L (3.5-5.1)
[2020-06-27 22:03] LABS: BACTERIA,URINE FEW /HPF (0-FEW); RBC,URINE OCC /HPF (0-2); SQUAMOUS EPITHELIAL CELL,UR MANY /LPF; WBC,URINE OCC /HPF (0-4)
[2020-06-27] MEDS ORDERED: POTASSIUM CHLORIDE 20 MEQ TABLET.ER. PO ONE (22:30)
[2020-06-27] MEDS ORDERED: MAGNESIUM SULFATE 2GM 50 ML IV ONE (22:30)
[2020-06-27] MEDS ORDERED: ACETAMINOPHEN 325 MG TABLET PO PRN (23:00)
[2020-06-27] MEDS ORDERED: ONDANSETRON PF 4 MG/2 ML VIAL. IVP PRN (23:00)
[2020-06-27] MEDS ORDERED: POTASSIUM CL 40MEQ IN 0.9%NACL 1,000 ML IV ONE (23:30)
--- NOTE | 2020-06-27 23:46 | RAD ---
CT scan of the head without contrast 06/27/2020 Clinical History: Dizziness. Technique: Unenhanced, contiguous, 5 mm axial sections were obtained through the head. One or more of the following individualized dose reduction techniques were utilized for this study: 1. Automated exposure control. 2. Adjustment of the mA and/or kV according to patient size. 3. Use of iterative reconstruction technique. Findings: The ventricles and sulci are within normal limits in size and configuration. No acute paren chymal abnormality is seen. No extra-axial fluid collection is noted. No skull fracture is seen. Impression: No acute intracranial abnormality is seen. CT scan of the cervical spine without contrast 06/27/2020 Clinical history: Neck pain. Technique: Unenhanced, contiguous, 0.625 mm axial sections were obtained through the cervical spine. Axial, coronal and sagittal reconstructed images were obtained. One or more of the following individualized dose reduction techniques were utilized for this study: 1. Automated exposure control. 2. Adjustment of the mA and/or kV according to patient size. 3. Use of iterative reconstruction technique. Findings: Sagittal and coronal reconstructed images demonstrate straightening of the normal cervical lordosis. The patient is post anterior fusion using an anterior plate, bone screws and bone graft mat erial at C3-4. Degenerative changes consisting of varying degrees of disc space narrowing, vertebral endplate sclerosis and minimal to mild anterior and posterior vertebral body osteophyte formation are seen involving the C4-5, C5-6, C6-7 and C7-T1 disc spaces. No fracture or subluxation of the cervical vertebrae is seen. Degenerative changes are seen involving the uncovertebral and facet joints throughout the mid and lower cervical disc spaces. No area of sig nificant central spinal canal or neural foraminal stenosis is seen. IMPRESSION: 1. Post anterior fusion at C3-4. 2. Degenerative changes are seen throughout the cervical spine. These findings do not result in signi ficant central spinal canal or neural foraminal stenosis. No acute osseous abnormality is seen. Electronically signed by: Nicholas Keita MD (06/27/2020 11:44 PM) [id number]
--- NOTE | 2020-06-28 00:15 | NUR ---
The patient, BETY MUNGUIA, 50 y/o, F admitted by ROSENDO THURSTON MD, to room 119, was given written information regarding hospital policies, unit procedures and contact persons. Valuables were checked and left with the patient. Medical history and medications reviewed. Assessments completed. Pt placed on telemetry. Will continue to monitor.
[2020-06-28 00:16] VITALS: BP 118/73
[2020-06-28] MEDS ORDERED: DOCU-109 PO (05:15)
[2020-06-28] MEDS ORDERED: SODI126M NS (05:15)
[2020-06-28] MEDS ORDERED: ALPR0.254 PO (05:15)
[2020-06-28] MEDS ORDERED: LOSA100T14 PO (05:15)
[2020-06-28] MEDS ORDERED: IPRA3AMP29 NEB (05:15)
[2020-06-28] MEDS ORDERED: HYDR12.572 PO (05:15)
[2020-06-28] MEDS ORDERED: SOLI10TA2 PO (05:15)
[2020-06-28] MEDS ORDERED: FLUT50DI IH (05:15)
[2020-06-28] MEDS ORDERED: FLUO20CA20 PO (05:15)
[2020-06-28] MEDS ORDERED: AZEL137S3 NS (05:15)
[2020-06-28] MEDS ORDERED: PROAIR RESPICL90 MCG IH (05:15)
[2020-06-28] MEDS ORDERED: IPRATRPIUM/ALBUTEROL 0.5/2.5MG 3 ML NEBU. ONE (05:21)
[2020-06-28] MEDS ORDERED: oxyCODONE/APAP 5/325 1 TAB TABLET PO PRN (08:00)
[2020-06-28] MEDS ORDERED: IPRATRPIUM/ALBUTEROL 0.5/2.5MG 3 ML NEBU. NEB SCH (08:00)
[2020-06-28] MEDS ORDERED: NON FORMULARY ITEM (Albuterol Sulfate (Proair Respiclick) 2 PUFF) IH PRN (08:00)
[2020-06-28] MEDS ORDERED: ALPRAZolam 0.25 MG TABLET PO PRN (08:00)
[2020-06-28] MEDS ORDERED: diphenhydrAMINE HCL 25 MG CAPSULE PO PRN (08:00)
[2020-06-28] MEDS ORDERED: NON FORMULARY ITEM (Naproxen Sodium (Aleve) 220 MG) PO PRN (08:00)
[2020-06-28 08:08] LABS: BASO % 1 % (0-3); EOS # 0.2 x10^3/uL (0.0-0.7); EOS % 4 % (0-3); HEMATOCRIT 36.6 % (36.0-47.0); HEMOGLOBIN 12.2 g/dL (12.0-15.5); LYMPH # 1.8 x10^3/uL (1.0-4.8); LYMPH % 45 % (24-48); MEAN CORPUSCULAR HEMOGLOBIN 30 pg (25-35); MEAN CORPUSCULAR HGB CONC 33 g/dL (31-37); MEAN CORPUSCULAR VOLUME 90 fL (79-100); MONO # 0.4 x10^3/uL (0.0-1.1); MONO % 10 % (0-9); NEUT # 1.6 x10^3uL (1.8-7.7); NEUT % 41 % (31-73); PLATELET COUNT 223 x10^3/uL (140-400); RED BLOOD COUNT 4.08 x10^6/uL (3.50-5.40); RED CELL DISTRIBUTION WIDTH 13.4 % (11.5-14.5); WHITE BLOOD COUNT 4.1 x10^3/uL (4.0-11.0)
[2020-06-28 08:12] LABS: CALCIUM 9.5 mg/dL (8.5-10.1); CREATININE 1.1 mg/dL (0.6-1.0); GFR 52.8
[2020-06-28 08:37] LABS: POTASSIUM 2.3 mmol/L (3.5-5.1)
[2020-06-28] MEDS ORDERED: POTASSIUM BICARB 10 MEQ EFFERVESCENT TABLET. FT ONE (08:45)
[2020-06-28] MEDS ORDERED: ELECTROLYTE (NON-ICU) PROTOCOL. MC PRN ×2 (08:45→12:15)
[2020-06-28] MEDS ORDERED: NON FORMULARY ITEM (Losartan/Hydrochlorothiazide (Losartan-Hctz 50-12.5 Mg Tab) 1 TAB) PO SCH (09:00)
[2020-06-28] MEDS ORDERED: ALPRAZolam 0.25 MG TABLET PO SCH (09:00)
[2020-06-28] MEDS: DOCUSATE SODIUM 100 MG CAPSULE PO SCH ×2 (09:00→21:18)
[2020-06-28] MEDS ORDERED: predniSONE 20 MG TABLET PO SCH (09:00)
[2020-06-28] MEDS ORDERED: NON FORMULARY ITEM (Fluticasone Propionate (Flovent 50MCG Diskus) 50 MCG) IH SCH (09:00)
[2020-06-28] MEDS ORDERED: POTASSIUM CHLORIDE 20 MEQ TABLET.ER. PO SCH (09:00)
[2020-06-28] MEDS ORDERED: TIZA4TAB8 PO (09:14)
[2020-06-28] MEDS ORDERED: ALBUTEROL SULFATE 2.5 MG/3 ML NEBU. NEB PRN (09:15)
[2020-06-28] MEDS ORDERED: hydroCHLOROthiazide 12.5 MG CAPSULE PO SCH (09:15)
[2020-06-28] MEDS ORDERED: SODIUM CHLORIDE 0.65% NASAL SPRAY 45ML BOTTLE. NS PRN (09:15)
[2020-06-28] MEDS: LOSARTAN 50 MG TABLET. PO SCH (09:41)
[2020-06-28] MEDS: tiZANidine 4 MG TABLET. PO PRN (09:42)
[2020-06-28] MEDS: PANTOPRAZOLE 40 MG TABLET. PO SCH (09:42)
[2020-06-28] MEDS: FLUoxetine HCL 20 MG CAPSULE PO SCH (09:42)
[2020-06-28] MEDS: busPIRone 15 MG TABLET. PO SCH ×2 (09:42→21:18)
[2020-06-28] MEDS: POTASSIUM BICARB 20 MEQ EFFERVESCENT TABLET. PO SCH ×3 (09:43→13:13)
[2020-06-28] MEDS: OXYBUTYNIN CHLORIDE 5 MG TABLET PO SCH ×3 (09:45→21:20)
[2020-06-28] MEDS: IPRATRPIUM/ALBUTEROL 0.5/2.5MG 3 ML NEBU. NEB SCH ×3 (10:01→20:49)
[2020-06-28 11:19] VITALS: BP 150/62
[2020-06-28] MEDS ORDERED: ACETAMINOPHEN/CODEINE 300/30MG TABLET PO PRN (12:30)
[2020-06-28] MEDS ORDERED: MAG HYDROX/AL HYDROX/SIMETH 30 ML ORAL.SUSP PO PRN (12:30)
[2020-06-28] MEDS ORDERED: METOPROLOL SUCC 24HR ER 25 MG TAB.ER.24H. PO ONE (13:00)
[2020-06-28] MEDS: ENOXAPARIN 40 MG/0.4 ML SYRINGE. SQ SCH ×2 (13:13→21:19)
--- NOTE | 2020-06-28 13:43 | HP ---
ADMIT DATE: 06/27/2020 HISTORY OF PRESENT ILLNESS: A 50-year-old female, apparently had surgery on her cervical spine here approximately a month ago. She had a fusion. The patient had been doing well. 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 She denied anterior chest pain at all, but the patient was admitted to the hospital for further evaluation and treatment of the severity of this pain. She was seen initially through the Emergency Room and she was in critical amount of pain and inability to mobilize. PAST MEDICAL HISTORY: She has had a thyroid nodule, tonsillectomy, and adenoidectomy. The patient has had previous history of heart attack, hypercholesterolemia, asthma, sleep apnea, obesity, history of possible breast cancer, cervical cancer, uterine cancer, lumpectomy, hysterectomy, , multiple urinary tract infections, right knee surgery, PTSD, depression, anxiety, skin cancer, possible symptoms of lupus, and influenza. The patient had a history of a C3-C4 fusion as well as a left rotator cuff repair. 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 ALLERGIES: THE PATIENT HAS ALLERGY TO IODINE MEDIA, PENICILLIN, SULFUR, BANANA, CIPRO, CLARITHROMYCIN, BIAXIN, FISH DERIVED, HYDROCODONE, IBUPROFEN, LATEX, LEVOTHYROXINE, MYRON, NUTS, SHELLFISH DERIVED, AND STRAWBERRIES. FAMILY HISTORY: Positive for father and mother with diabetes, brother and son with skin cancer and hypertension, father and mother hypercholesterolemia, mother heart attack, father and son heart disease, and heart attack in the father. REVIEW OF SYSTEMS: The patient notes she has increased shortness of breath, weakness, dizziness, and lightheadedness when attempting to walk. The patient, otherwise, denies any nausea, vomiting, or diaphoresis. Denies any melena, hematochezia, hematemesis or problems urination or any focal weakness anywhere else. She communicates well. No trouble with understanding or communicating her speech. PHYSICAL EXAMINATION: GENERAL: This is a pleasant white female, moderate amount of pain. VITAL SIGNS: Blood pressure 120/70, respiration 18, pulse upwards of over 100 at times. Blood pressure did drop down to 80/46, oxygen saturation 96%. HEENT: The patient's head was atraumatic and normocephalic. Eyes: PERRL. NECK: Does have limited range of motion with stiffness to the neck. Surgery on the left side of the neck itself for the fusion. The patient's range of motion of the left shoulder is slightly decreased with previous history of rotator cuff injury. Otherwise, the lungs were clear to auscultation. There was no pain on palpation of the thoracic spine, but some tenderness to the cervical spine. The patient had normal sensation down her arms to her hands. 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 LUNGS: Clear to auscultation. CARDIOVASCULAR: Regular sinus rhythm, S1, S2. At times, tachycardic. ABDOMEN: Soft, protuberant, nontender. No rebound or guarding. Positive bowel sounds. No hepatosplenomegaly. EXTREMITIES: No clubbing, cyanosis, nor edema. NEUROLOGIC: The patient was alert and oriented. Speech is fluent, spontaneous, appropriate. Appropriate speech was noted. The patient has good eye contact. Eyes were PERRLA, EOMI. Reflexes symmetrical, but marked tenderness in that upper back area. Reflexes are brisk, but symmetrical. Plantars are down. Gait not tested because of her generalized weakness. LABORATORY DATA: The patient's CBC was all within normal limits. Chemistries did show a significant drop in her potassium down to 2.3, albumin of 3.3, magnesium was low at 1.7, glucose stable, creatinine of 1.5 with a BUN of 13. Cardiac enzymes so far have been negative. EKG showed normal sinus rhythm. The patient's chest x-ray was unremarkable, no acute findings noted. A CT head showed no acute intracranial problems. Neck, anterior fusion, C3-C4 degenerative changes seen through the cervical spine, otherwise unremarkable there. However, we will get a CT of the thoracic spine and an echocardiogram, as she has had multiple obvious complicating injuries and other medical problems. IMPRESSION AND PLAN: Intractable thoracic pain, chest pain, history of cervical fusion within the last month or thereabouts, previous history of cervical, uterine, and breast cancers, history of coronary artery disease, thyroid disease, history of possible lupus. The patient will be admitted for close monitoring for any signs of infection, blood clots or the like. We will do CT scan of the thoracic spine and V/Q scan because of her ALLERGY TO IODINE, get an echocardiogram because of her generalized weakness and lightheadedness when she is walking. We will look for other signs of possible latent infection or latent other abnormalities of the surgery itself. Otherwise, she seems to be resting comfortably, has asked for just some mild Tylenol No. 3 at the present time, although she is just lying in bed, placed on Lovenox and performed these other procedures and test as indicated. ROSENDO THURSTON MD DR: SOFIA/yovany JOB#: [id number] / [id number]
--- NOTE | 2020-06-28 13:44 | RAD ---
CT THORACIC SPINE WO 06/28/2020 12:51 PM Indication: severe pain Comparison: None. Technique: CT imaging of the thoracic spine was performed without contrast. Coronal and sagittal ref ormatted images were performed. One or more of the following dose reduction techniques were utilized: Automated exposure control (AEC), Adjustment of mA and/or kV according to patient size, Use of itera tive reconstruction technique such as ASiR, CT scan done according to ALARA and image gently/image wi sely. Findings: The thoracic spine is normally aligned. No acute fracture. Vertebral body heights are maintained with out compression deformity. Multilevel degenerative disc height loss. No aggressive lytic or blastic o sseous lesion. No high-grade spinal canal stenosis or neural foraminal narrowing. The visualized lungs are clear. No pleural effusion. The visualized thoracic aorta is normal caliber. Impression: No acute osseous abnormality of the thoracic spine. Electronically signed by: Ronny Sharif MD (06/28/2020 1:42 PM) [id number]
[2020-06-28 16:05] VITALS: BP 94/52
[2020-06-28 16:23] LABS: CALCIUM 9.4 mg/dL (8.5-10.1); GFR 58.9; POTASSIUM 4.2 mmol/L (3.5-5.1)
[2020-06-28] MEDS: MAGNESIUM CHLORIDE ER 64 MG TABLET.ER PO SCH (16:45)
[2020-06-28 20:43] VITALS: BP 115/72
[2020-06-28] MEDS ORDERED: SOLIFENACIN SUCCINATE PO SCH (21:00)
[2020-06-28] MEDS ORDERED: ZOLPIDEM 5 MG TABLET. PO PRN (21:00)
[2020-06-28] MEDS ORDERED: NON FORMULARY ITEM (Escitalopram Oxalate 20 MG) PO SCH (21:00)
[2020-06-28] MEDS ORDERED: traZODone 50 MG TABLET. PO SCH (21:00)
[2020-06-28] MEDS ORDERED: AZELASTINE NASAL SPRAY 30ML BOTTLE. NS SCH (21:00)
[2020-06-28 23:00] VITALS: BP 118/67
[2020-06-29] MEDS: tiZANidine 4 MG TABLET. PO PRN ×2 (02:29→21:41)
[2020-06-29] MEDS: IPRATRPIUM/ALBUTEROL 0.5/2.5MG 3 ML NEBU. NEB SCH ×4 (05:17→20:27)
[2020-06-29 05:41] VITALS: BP 115/63
[2020-06-29] MEDS: LOSARTAN 50 MG TABLET. PO SCH (07:47)
[2020-06-29] MEDS: DOCUSATE SODIUM 100 MG CAPSULE PO SCH ×2 (07:47→21:41)
[2020-06-29] MEDS: busPIRone 15 MG TABLET. PO SCH ×2 (07:47→21:41)
[2020-06-29] MEDS: PANTOPRAZOLE 40 MG TABLET. PO SCH (07:47)
[2020-06-29] MEDS: MAGNESIUM CHLORIDE ER 64 MG TABLET.ER PO SCH (07:47)
[2020-06-29] MEDS: FLUoxetine HCL 20 MG CAPSULE PO SCH (07:48)
[2020-06-29] MEDS: OXYBUTYNIN CHLORIDE 5 MG TABLET PO SCH ×3 (07:48→21:41)
[2020-06-29] MEDS: ENOXAPARIN 40 MG/0.4 ML SYRINGE. SQ SCH ×2 (07:48→21:42)
[2020-06-29 08:06] LABS: CALCIUM 9.5 mg/dL (8.5-10.1); CREATININE 0.9 mg/dL (0.6-1.0); GFR 66.5; POTASSIUM 3.1 mmol/L (3.5-5.1)
[2020-06-29] MEDS ORDERED: METOPROLOL SUCC 24HR ER 25 MG TAB.ER.24H. PO SCH (09:00)
--- NOTE | 2020-06-29 09:37 | RAD ---
Indication: Reason: soa and + d dimer +cpp, DEEPA IS AWARE.-mp / Spl. Instructions: / History: Technique: Static images are obtained of both lungs following IV administration of 5.5 mCi of 99 M te chnetium MAA. Comparison: Chest x-ray from June 27, 2020 Findings: Patchy perfusion defects are seen. Can not assess whether this is matched or mismatched given the lack of ventilation images. Impression: 1. Overall low probability of pulmonary embolus. Electronically signed by: Osito Mercer MD (06/29/2020 9:34 AM) [id number]
[2020-06-29 11:19] VITALS: BP 119/74
[2020-06-29 11:21] VITALS: BP 119/74
--- NOTE | 2020-06-29 16:43 | CARD ---
MR#: [id number] Date of Study: 06/29/2020 Ordering Physician: ROSENDO THURSTON, Referring Physician: ROSENDO THURSTON, Tech: Misa Sanchez, [facility] APPROVED REPORT EXAM: Two-dimensional and M-mode echocardiogram with Doppler and color Doppler. Other Information Quality : AverageHR: 87bpm INDICATION Dizziness and Vertigo Dyspnea RISK FACTORS Hypertension Asthma 2D DIMENSIONS RVDd3.0 (2.9-3.5cm)Left Atrium(2D)3.2 (1.6-4.0cm) IVSd0.9 (0.7-1.1cm)Aortic Root(2D)2.8 (2.0-3.7cm) LVDd5.2 (3.9-5.9cm)LVOT Diameter2.0 (1.8-2.4cm) PWd0.9 (0.7-1.1cm)LVDs3.1 (2.5-4.0cm) FS (%) 40.7 %SV92.2 ml Aortic Valve AoV Peak Juve.150.0cm/sAoV VTI33.5cm AO Peak GR.9.0mmHgLVOT Peak Juve.118.9cm/s LVOT VTI 27.09cmAO Mean GR.5mmHg ANGELA (VMAX)2.96id3WJG (VTI)2.45cm2 Mitral Valve MV E Dpopmshh650.5cm/sMV DECEL HVLP992rk MV A Jjfycivp84.4cm/sE/A Ratio1.8 Pulmonary Valve PV Peak Cintmxel01.0cm/sPV Peak Grad.2mmHg Tricuspid Valve TR P. Yosjhhno551hg/sRAP TKBENOBZ32waTf TR Peak Gr.94pjInZRBM24itSp Pulmonary Vein S1 Puwivhrq28.6cm/sD2 Yhyyosub12.5cm/s LEFT VENTRICLE The left ventricle is normal size. There is normal left ventricular wall thickness. The left ventricu lar systolic function is normal and the ejection fraction is within normal range. The Ejection Fracti on is 55-60%. There is normal LV segmental wall motion. Transmitral Doppler flow pattern is Grade II- pseudonormal filling dynamics. RIGHT VENTRICLE The right ventricle is normal size. There is normal right ventricular wall thickness. The right ventr icular systolic function is normal. ATRIA The left atrium size is normal. The right atrium size is normal. The interatrial septum is intact wit h no evidence for an atrial septal defect or patent foramen ovale as noted on 2-D or Doppler imaging. AORTIC VALVE The aortic valve is normal in structure and function. Doppler and Color Flow revealed no significant aortic regurgitation. There is no significant aortic valvular stenosis. Calculated aortic valve area is 2.5 cm2 with maximum pressure gradient of 9 mmHg and mean pressure gradient of 5 mmHg. MITRAL VALVE The mitral valve is normal in structure and function. There is no evidence of mitral valve prolapse. There is no mitral valve stenosis. Doppler and Color Flow revealed no mitral valve regurgitation note d. TRICUSPID VALVE The tricuspid valve is normal in structure and function. Doppler and Color Flow revealed trace tricus pid regurgitation with an estimated PAP of 46 mmHg. There is no tricuspid valve stenosis. PULMONIC VALVE The pulmonic valve is not well visualized. Doppler and Color Flow revealed trace pulmonic valvular re gurgitation. GREAT VESSELS The aortic root is normal in size. The IVC is dilated and collapses <50% with inspiration. PERICARDIAL EFFUSION There is no evidence of significant pericardial effusion. Critical Notification Critical Value: No <Conclusion> The left ventricle is normal size. The left ventricular systolic function is normal and the ejection fraction is within normal range. The Ejection Fraction is 55-60%. Doppler and Color Flow revealed no significant aortic regurgitation. There is no significant aortic valvular stenosis. Calculated aortic valve area is 2.5 cm2 with maximum pressure gradient of 9 mmHg and mean pressure gr adient of 5 mmHg. Doppler and Color Flow revealed no mitral valve regurgitation noted. Doppler and Color Flow revealed trace tricuspid regurgitation with an estimated PAP of 46 mmHg. Signed by : Josué Barker MD Electronically Approved : 06/29/2020 16:42:35
[2020-06-29 16:46] VITALS: BP 115/65
--- NOTE | 2020-06-29 19:11 | PN ---
DATE: 06/29/2020 SUBJECTIVE: A 50-year-old female came in with severe upper back pain postoperatively as well as being markedly dyspneic, short of breath and lightheaded. She also had anterior chest pain. The patient was seen and brought in and evaluated for this severe intractable pain as well as these other factors as noted above. She seems to be making some progress. She is receiving physical and occupational therapy and will continue to be monitored. OBJECTIVE: VITAL SIGNS: The patient's blood pressure 115/60, respiratory rate 20, pulse 70, afebrile. HEENT: The patient's head was atraumatic, normocephalic. Eyes: PERRLA. LUNGS: Diminished. BACK: The patient's pain in the upper nap of the back, swift tender/ EXTREMITIES: No clubbing, cyanosis, nor edema. NEUROLOGIC: The patient is alert and oriented x 3. PLAN: We will continue to monitor her accordingly and make further evaluation as indicated. IMPRESSION: Intractable thoracic pain, chest pain, dyspnea, vitamin D deficiency, hypokalemia 2.3, and moderate protein malnutrition. ROSENDO THURSTON MD DR: SOFIA/yovany JOB#: [id number] / [id number]
[2020-06-29 19:30] VITALS: BP 104/66
[2020-06-30] MEDS ORDERED: POTASSIUM CHLORIDE 20 MEQ TABLET.ER. PO ONE (01:00)
[2020-06-30] MEDS: IPRATRPIUM/ALBUTEROL 0.5/2.5MG 3 ML NEBU. NEB SCH ×2 (05:28→09:45)
[2020-06-30] MEDS: tiZANidine 4 MG TABLET. PO PRN (05:30)
[2020-06-30 05:56] VITALS: BP 123/73
[2020-07-01 04:12] LABS: CALCIUM 9.6 mg/dL (8.5-10.1)
[2020-07-01 04:13] LABS: CREATININE 0.9 mg/dL (0.6-1.0); GFR 66.5; POTASSIUM 3.6 mmol/L (3.5-5.1)
== END 2020-06-30 12:10 | disposition home or self-care (01) ==
LOC: ER 19:22 → INTOOBSV 22:30 → 1 SOUTH 22:30
PROVIDERS: ADMIT Family Medicine; ATTEND Family Medicine
DX: R07.89 Other chest pain (principal); M54.6 Pain in thoracic spine; M43.22 Fusion of spine, cervical region; I25.10 Atherosclerotic heart disease of native coronary artery without angina pectoris; E07.9 Disorder of thyroid, unspecified; E78.00 Pure hypercholesterolemia, unspecified; J45.909 Unspecified asthma, uncomplicated; E87.6 Hypokalemia; E83.42 Hypomagnesemia; R00.1 Bradycardia, unspecified; R42 Dizziness and giddiness; E86.0 Dehydration; G47.30 Sleep apnea, unspecified; F43.10 Post-traumatic stress disorder, unspecified; F41.9 Anxiety disorder, unspecified; F32.9 Major depressive disorder, single episode, unspecified; E66.9 Obesity, unspecified; Z90.710 Acquired absence of both cervix and uterus; Z98.891 History of uterine scar from previous surgery; Z85.42 Personal history of malignant neoplasm of other parts of uterus; Z85.41 Personal history of malignant neoplasm of cervix uteri; Z85.3 Personal history of malignant neoplasm of breast; Z90.49 Acquired absence of other specified parts of digestive tract; Z98.890 Other specified postprocedural states; Z85.828 Personal history of other malignant neoplasm of skin; Z79.899 Other long term (current) drug therapy
CPT/HCPCS: 36415; 70450; 71045; 72125; 72128; 78580; 80048; 80053; 80307; 81001; 82306; 82553; 83735; 83880; 84443; 84484; 85025; 85379; 85610; 85730; 93005; 93306; 94640; 96361; 96365; 96366; 96368; 96372; 97116; 97162; 97165; 97535; 99285; A9540; G0378; J1650; J3475; J7030; 96374; G0379

== ENCOUNTER → 2020-08-21 | Outpatient (CLI) | payer OTHER ==
[~2020-08-21] MED LIST changes: +AZEL137S3 NS; +DOCU-109 PO; +FLUO20CA20 PO; +FLUT50DI IH; +HYDR12.572 PO; +IPRA3AMP29 NEB; +LOSA100T14 PO; +PROAIR RESPICL90 MCG IH; +SODI126M NS; +SOLI10TA2 PO; +TIZA4TAB8 PO
--- NOTE | 2020-08-21 16:59 | RAD ---
3 views left knee HISTORY: Left knee pain AP lateral oblique views There is minimal marginal spurring of the lateral and medial compartments. There is no interruption o f cortex to suggest a fracture. There is a moderate sized dense effusion seen on the lateral view. IMPRESSION: Moderate hemarthrosis. There is no acute bony abnormality seen however a rapid hemarthrosis can be se condary to an occult tibial plateau fracture or an ACL tear. Electronically signed by: Tenzin Fragoso III, MD (08/21/2020 4:57 PM) [facility]
== END ==
LOC: RAD 16:01
PROVIDERS: ATTEND Nurse Practitioner Family
DX: M25.062 Hemarthrosis, left knee (principal); M76.892 Other specified enthesopathies of left lower limb, excluding foot; M25.462 Effusion, left knee
CPT/HCPCS: 73562

== ENCOUNTER → 2021-07-13 | Outpatient (CLI) | payer OTHER ==
[~2021-07-13] MED LIST changes: -FLUO20CA20 PO; +FLUO20CA22 PO
--- NOTE | 2021-07-13 09:39 | RAD ---
US THYROID History: Hypothyroidism Comparison: None. Technique: Multiple grayscale and color Doppler images of the thyroid gland were obtained. Findings: Right thyroid lobe: 3.9 x 1.6 x 1.8 cm. Left thyroid lobe: 4.1 x 1.6 x 1.6 cm. Isthmus: 0.2 cm. The thyroid gland is relatively homogeneous with normal vascularity. There is a single left thyroid n odule. Nodule #1. Size: 5 x 4 x 5 mm Location: Left lower. Characteristics: Solid, hypoechoic, circumscribed, wider than tall, no echogenic foci ACR TI-RADS risk category: TR4 (4-6 points): FNA if 1.5 cm, follow-up if 1-1.4 cm in 1, 2, 3, and 5 y ears. Disposition: No follow-up required. IMPRESSION: 1. Normal-sized relatively homogeneous thyroid with a single nodule which is below size threshold fo r follow-up or FNA. ACR Thyroid Imaging, Reporting And Data System (TI-RADS): White Paper Of The ACR TI-RADS Committee. J ournal of the [employer], volume 14, issue 5, pages 587-595 (September 2016). Electronically signed by: Fran Comer MD (07/13/2021 9:37 AM) [id number]
== END ==
LOC: US 07:51
PROVIDERS: ATTEND Family Medicine
DX: E04.1 Nontoxic single thyroid nodule (principal); E03.9 Hypothyroidism, unspecified; R94.6 Abnormal results of thyroid function studies
CPT/HCPCS: 76536

== ENCOUNTER → 2021-09-13 | Outpatient (CLI) | payer OTHER ==
[~2021-09-13] MED LIST changes: +CEPH500T PO; +HYDR-2759 PO
--- NOTE | 2021-09-13 17:12 | RAD ---
Exam: CT abdomen/pelvis without intravenous contrast Indication: Right upper quadrant pain and bloating, 30 pound weight gain in the last 2 months Comparison: Chest abdomen pelvis 08/22/2017 Technique: Helical CT imaging performed of the abdomen and pelvis without the use of intravenous cont rast. Sagittal and coronal reformats were obtained. One or more of the following individualized dose reduction techniques were utilized for this examinat ion: 1. Automated exposure control 2. Adjustment of the mA and/or kV according to patient size 3. Use of iterative reconstruction technique. Findings: Inherently limited evaluation without intravenous contrast. Lower chest: Mild atelectasis in the right middle lobe. The heart is normal in size. Liver: Normal noncontrast appearance of the liver. Gallbladder/Biliary Tree: Normal. Pancreas: Normal. Spleen: Normal. Adrenal Glands: Normal. Kidneys/Ureters/Bladder: Normal. No hydronephrosis or nephrolithiasis. Reproductive Organs: Uterus is surgically absent. No adnexal mass. A probable small right ovarian cys t seen on 08/22/2017 has resolved. Stomach, small bowel, and colon: The stomach is normal. There is no small bowel obstruction. Grossly unremarkable colon, evaluation mildly limited by motion artifact. The appendix is normal. Vasculature: No aortic aneurysm. Lymph Nodes: No lymphadenopathy. Peritoneum and retroperitoneum: No free fluid or free air. Bones: No acute osseous abnormality. There is degenerative disc disease at L5-S1. Miscellaneous: None IMPRESSION: No acute abnormality in the abdomen and pelvis. Electronically signed by: Melinda Yu MD (09/13/2021 5:09 PM) [id number]
== END ==
LOC: CT 15:05
PROVIDERS: ATTEND Family Medicine
DX: R63.5 Abnormal weight gain (principal); R19.7 Diarrhea, unspecified; R60.9 Edema, unspecified; R10.84 Generalized abdominal pain; M51.37 Other intervertebral disc degeneration, lumbosacral region; Z90.710 Acquired absence of both cervix and uterus
CPT/HCPCS: 74176

== ENCOUNTER 2021-09-14 11:52 | Emergency (ER) | payer OTHER ==
[~2021-09-14] VITALS: Ht 162.6 cm; Wt 112.0 kg
[~2021-09-14 11:52] MED LIST changes: -CEPH500T PO; -HYDR-2759 PO
[2021-09-14] MEDS ORDERED: MORPHINE SULFATE 4 MG/ML DISP.SYRIN. IV ONE ×2 (12:45→16:15)
[2021-09-14] MEDS ORDERED: ONDANSETRON PF 4 MG/2 ML VIAL. IVP ONE (12:45)
[2021-09-14 13:15] LABS: CALCIUM 10.8 mg/dL (8.5-10.1); CREATININE 0.8 mg/dL (0.6-1.0); GFR 75.9; POTASSIUM 3.5 mmol/L (3.5-5.1)
[2021-09-14 13:20] LABS: BASO % 1 % (0-3); EOS # 0.1 x10^3/uL (0.0-0.7); EOS % 3 % (0-3); HEMATOCRIT 37.7 % (36.0-47.0); HEMOGLOBIN 12.8 g/dL (12.0-15.5); LYMPH # 1.3 x10^3/uL (1.0-4.8); LYMPH % 36 % (24-48); MEAN CORPUSCULAR HEMOGLOBIN 30 pg (25-35); MEAN CORPUSCULAR HGB CONC 34 g/dL (31-37); MEAN CORPUSCULAR VOLUME 87 fL (79-100); MONO # 0.4 x10^3/uL (0.0-1.1); MONO % 10 % (0-9); NEUT # 1.9 x10^3uL (1.8-7.7); NEUT % 50 % (31-73); PLATELET COUNT 234 x10^3/uL (140-400); RED BLOOD COUNT 4.34 x10^6/uL (3.50-5.40); RED CELL DISTRIBUTION WIDTH 13.1 % (11.5-14.5); WHITE BLOOD COUNT 3.7 x10^3/uL (4.0-11.0)
[2021-09-14 13:24] LABS: ALBUMIN 3.6 g/dL (3.4-5.0); ALBUMIN/GLOBULIN RATIO 1.2 (1.0-1.7); TOTAL BILIRUBIN 1.5 mg/dL (0.2-1.0); TOTAL PROTEIN 6.6 g/dL (6.4-8.2)
--- NOTE | 2021-09-14 14:43 | PHYS DOC ---
Past History Past Medical History: Arthritis, Asthma, Cancer, Hypertension, Hypothyroid, OR, Migraines Additional Past Medical Histor: lupus, Raynauds, Sjogrens, urinary reflux (FADI HANCOCK APRN) Past Surgical History: Cancer Surgery, Cervical Fusion, , Hysterectomy, Oophorectomy, Other Additional Past Surgical Histo: R lumpectomy, uterine/cervical CA, rotator cuff, (FADI HANCOCK APRN) Smoking: Non-smoker Alcohol Use: None Drug Use: None (FADI HANCOCK APRN) General Adult EDM: Chief Complaint: ABDOMINAL PAIN HPI: HPI: Patient is a 51-year-old female presents with right upper quadrant abdominal pain. Patient states that she has had the pain for a few weeks. Pain is worse after eating. Patient reports that her poop has been oily and yellow in color. Patient states that pain is worse when she lays down and feels like she is swollen. Patient's been taking Tylenol at home with no relief. Patient had a CT and ultrasound done this week which both were negative for acute findings. (FADI HANCOCK APRN) Review of Systems: Review of Systems: ROS At least 10 ROS systems have been reviewed and are negative except as documented in the HPI. General: Negative except as outlined in HPI above. Skin: Negative except as outlined in HPI above. HEENT: Negative except as outlined in HPI above. Neck: Negative except as outlined in HPI above. Respiratory: Negative except as outlined in HPI above.. Cardiovascular: Negative except as outlined in HPI above. Abdomen: Negative except as outlined in HPI above. : Negative except as outlined in HPI above. Back/MSK: Negative except as outlined in HPI above. Neuro: Negative except as outlined in HPI above. Psych: Negative except as outlined in HPI above. (FADI HANCOCK APRN) Current Medications: Current Meds: Current Medications Medications (Trade) Dose Ordered Sig/Russell Start Time Stop Time Status Last Admin Dose Admin Morphine Sulfate (Morphine 4mg Syringe) 4 mg 1X ONCE 09/14/21 12:45 09/14/21 12:58 DC 09/14/21 13:13 4 MG Ondansetron HCl (Zofran) 4 mg 1X ONCE 09/14/21 12:45 09/14/21 12:58 DC 09/14/21 13:13 4 MG (HANCOCK,FADI SHELL COREMAKER) Allergies: Allergies: Allergies Coded Allergies Type Severity Reaction Last Updated Verified Iodinated Contrast Media Allergy Severe Anaphylaxis 06/28/20 Yes banana Allergy Severe Anaphylaxis 06/27/20 Yes fish derived Allergy Severe 06/27/20 Yes maite Allergy Severe 06/27/20 Yes nut - unspecified Allergy Severe Anaphylaxis 06/27/20 Yes strawberry Allergy Severe Anaphylaxis 06/27/20 Yes Penicillins Allergy Intermediate 08/22/17 Yes Sulfa (Sulfonamide Antibiotics) Allergy Intermediate 08/22/17 Yes ciprofloxacin Allergy Intermediate 08/22/17 Yes clarithromycin Allergy Intermediate 06/27/20 Yes hydrocodone Allergy Intermediate 06/27/20 Yes ibuprofen Allergy Intermediate 06/27/20 Yes latex Allergy Intermediate 06/27/20 Yes levofloxacin Allergy Intermediate 06/27/20 Yes shellfish derived Allergy Intermediate 06/27/20 Yes NSAIDS (Non-Steroidal Anti-Inflamma Allergy Unknown 09/14/21 Yes (FADI HANCOCK SHELL COREMAKER) Physical Exam: PE: Constitutional: Well developed, well nourished, no acute distress, non-toxic appearance. [] HENT: Normocephalic, atraumatic, bilateral external ears normal, oropharynx moist, no oral exudates, nose normal. [] Eyes: PERRLA, EOMI, conjunctiva normal, no discharge. [] Neck: Normal range of motion, no tenderness, supple, no stridor. [] Cardiovascular:Heart rate regular rhythm, no murmur [] Lungs & Thorax: Bilateral breath sounds clear to auscultation [] Abdomen: Bowel sounds normal, soft, right upper quadrant tenderness Skin: Warm, dry, no erythema, no rash. [] Back: No tenderness, no CVA tenderness. [] Extremities: No tenderness, no cyanosis, no clubbing, ROM intact, no edema. [] Neurologic: Alert and oriented X 3, normal motor function, normal sensory function, no focal deficits noted. [] Psychologic: Affect normal, judgement normal, mood normal. [] (FADI HANCOCK SHELL COREMAKER) Current Patient Data: Labs: Laboratory Tests Test 09/14/21 12:45 White Blood Count 3.7 x10^3/uL (4.0-11.0) L Red Blood Count 4.34 x10^6/uL (3.50-5.40) Hemoglobin 12.8 g/dL (12.0-15.5) Hematocrit 37.7 % (36.0-47.0) Mean Corpuscular Volume 87 fL (79-100) Mean Corpuscular Hemoglobin 30 pg (25-35) Mean Corpuscular Hemoglobin Concent 34 g/dL (31-37) Red Cell Distribution Width 13.1 % (11.5-14.5) Platelet Count 234 x10^3/uL (140-400) Neutrophils (%) (Auto) 50 % (31-73) Lymphocytes (%) (Auto) 36 % (24-48) Monocytes (%) (Auto) 10 % (0-9) H Eosinophils (%) (Auto) 3 % (0-3) Basophils (%) (Auto) 1 % (0-3) Neutrophils # (Auto) 1.9 x10^3uL (1.8-7.7) Lymphocytes # (Auto) 1.3 x10^3/uL (1.0-4.8) Monocytes # (Auto) 0.4 x10^3/uL (0.0-1.1) Eosinophils # (Auto) 0.1 x10^3/uL (0.0-0.7) Basophils # (Auto) 0.0 x10^3/uL (0.0-0.2) Sodium Level 140 mmol/L (136-145) Potassium Level 3.5 mmol/L (3.5-5.1) Chloride Level 105 mmol/L (98-107) Carbon Dioxide Level 29 mmol/L (21-32) Anion Gap 6 (6-14) Blood Urea Nitrogen 8 mg/dL (7-20) Creatinine 0.8 mg/dL (0.6-1.0) Estimated GFR (Cockcroft-Gault) 75.9 BUN/Creatinine Ratio 10 (6-20) Glucose Level 100 mg/dL (70-99) H Calcium Level 10.8 mg/dL (8.5-10.1) H Total Bilirubin 1.5 mg/dL (0.2-1.0) H Aspartate Amino Transferase (AST) 21 U/L (15-37) Alanine Aminotransferase (ALT) 40 U/L (14-59) Alkaline Phosphatase 105 U/L (46-116) OU-Jdj-W-Type Natriuretic Peptide 6 pg/mL (0-124) Total Protein 6.6 g/dL (6.4-8.2) Albumin 3.6 g/dL (3.4-5.0) Albumin/Globulin Ratio 1.2 (1.0-1.7) Lipase 119 U/L (73-393) Vital Signs: Vital Signs Date Time Temp Pulse Resp B/P (MAP) Pulse Ox O2 Delivery O2 Flow Rate FiO2 09/14/21 13:13 16 94 Room Air 09/14/21 12:00 98.1 97 157/61 (93) (FADI HANCOCK APRN) EKG: EKG: [] (FADI HANCOCK APRN) Radiology/Procedures: Radiology/Procedures: [] (FADI HANCOCK APRN) Heart Score: C/O Chest Pain: No Risk Factors: Risk Factors: DM, Current or recent (<one month) smoker, HTN, HLP, family history of CAD, obesity. Risk Scores: Score 0 - 3: 2.5% MACE over next 6 weeks - Discharge Home Score 4 - 6: 20.3% MACE over next 6 weeks - Admit for Clinical Observation Score 7 - 10: 72.7% MACE over next 6 weeks - Early Invasive Strategies (FADI HANCOCK APRN) Course & Med Decision Making: Course & Med Decision Making Pertinent Labs and Imaging studies reviewed. (See chart for details) [] 51-year-old female presents with right upper quadrant abdominal pain, yellow stool, swelling to bilateral legs. Patient had a CT done yesterday which showed no acute findings. No sludge or gallstones seen. Work-up in ER consist of CBC, CMP, urinalysis. All labs were unremarkable. I discussed with patient that she did not need further imaging done. She most likely needed to have a PIPIDA scan done to study the way her gallbladder is working. Advised patient he she needs to follow-up with her PCP and a GI doctor for scheduling of outpatient exam. Urine is positive for nitrates, leuks, WBC. Patient is appreciative and okay with discharge plan. Sending patient home with some pain medication as well. Ibuprofen for breakthrough pain. Discussed return precautions. (FADI HANCOCK APRN) Dragon Disclaimer: Dragon Disclaimer: This electronic medical record was generated, in whole or in part, using a voice recognition dictation system. (FADI HANCOCK APRN) Attending Co-Sign The patient was seen and interviewed as well as examined at the bedside. The chart was reviewed. The case was discussed. Agree with the plan of care. (CHEYENNE GALO DO) Departure Departure: Impression: Primary Impression: Abdominal pain Qualified Codes: R10.9 - Unspecified abdominal pain Additional Impression: Cystitis Disposition: HOME / SELF CARE / HOMELESS Condition: STABLE Referrals: ROSENDO THURSTON MD (PCP) Patient Instructions: Abdominal Pain, [place] Additional Instructions: You were seen emergency room for right upper quadrant abdominal pain. All labs unremarkable. No reason for repeat imaging since you just had a CT done yesterday. There were no signs of sludge or stones at that time. You need to follow-up with your PCP to get a referral for GI doctor for a PIPIDA scan to be done. Sending you home with some pain medication and an antibiotic for UTI. Please return emergency room if you have worsening symptoms or concerns. EMERGENCY DEPARTMENT GENERAL DISCHARGE INSTRUCTIONS Thank you for coming to [facility] (ED) today and trusting us with you care. We trust that you had a positivie experience in our Emergency Department. If you wish to speak to the department management, you may call the director at [phone]. YOUR FOLLOW UP INSTRUCTIONS ARE FOLLOWS: 1. Do you have a private Doctor? If you do not have a private doctor, please ask for a resource list of physicians or clinics that may be able to assist you with follow up care. 2. The Emergency Physician has interpreted your x-rays. The X-Ray specialist will also review them. If there is a change in the findings, you will be notified in 48 hours when at all possible. 3. A lab test or culture has been done, your results will be reviewed and you will be notified if you need a change in treatment. ADDITIONAL INSTRUCTIONS AND INFORMATION: 1. Your care today has been supervised by a physician who is specially trained in emergency care. Many problems require more than one evaluation for a complete diagnosis and treatment. We recommend that you schedule your follow up appointment as recommended to ensure complete treatment of you illness or injury. If you are unable to obtain follow up care and continue to have a problem, or if your condition worsens, we recommend that you return to the ED. 2. We are not able to safely determine your condition over the phone nor are we able to give sound medical advice over the phone. For these safety reasons, if you call for medical advice we will ask you to come to the ED for further evaluation. 3. If you have any questions regarding these discharge instructions please call the ED at [phone]. SAFETY INFORMATION: In the interest of safety, wellness, and injury prevention; we encourage you to wear your sealbelt, if you smoke; quite smoking, and we encourage family to use a protective helmet for bicycling and other sporting events that present an increased risk for head injury. IF YOUR SYMPTOMS WORSEN OR NEW SYMPTOMS DEVELOP, OR YOU HAVE CONCERNS ABOUT YOUR CONDITION; OR IF YOUR CONDITION WORSENS WHILE YOU ARE WAITING FOR YOUR FOLLOW UP APPOINTMENT; EITHER CONTACT YOUR PRIMARY CARE DOCTOR, THE PHYSICIAN WHOSE NAME AND NUMBER YOU WERE GIVEN, OR RETURN TO THE ED IMMEDIATELY. Scripts Hydrocodone/Acetaminophen (Hydrocodone-Acetamin 5-325 mg) 1 Each Tablet 1 EACH PO BID for uti for 7 Days, #14 TAB Prov: FADI HANCOCK APRN 09/14/21 Cephalexin (CEPHALEXIN) 500 Mg Tablet 1 TAB PO BID for uti for 7 Days, #14 TAB Prov: FADI HANCOCK APRN 09/14/21 FADI HANCOCK APRN September 14, 2021 14:43 CHEYENNE GALO DO September 16, 2021 20:49
[2021-09-14 14:44] LABS: COLOR,URINE YELLOW
[2021-09-14 14:45] LABS: CLARITY,URINE HAZY; GLUCOSE,URINE NEG (NEG)
[2021-09-14 14:46] LABS: BACTERIA,URINE MOD /HPF (0-FEW); NITRITE,URINE POS (NEG); RBC,URINE 0 /HPF (0-2); SQUAMOUS EPITHELIAL CELL,UR MOD /LPF; UROBILINOGEN,URINE 0.2 mg/dL (0.2 mg/dL)
[2021-09-14] MEDS ORDERED: CEPH500T PO (14:55)
[2021-09-14] MEDS ORDERED: HYDR-2759 PO (15:00)
[2021-09-14 16:00] VITALS: BP 121/57
== END 2021-09-14 16:20 | disposition home or self-care (01) ==
LOC: ER 11:52
DX: N30.90 Cystitis, unspecified without hematuria (principal); M19.90 Unspecified osteoarthritis, unspecified site; J45.909 Unspecified asthma, uncomplicated; I10 Essential (primary) hypertension; E03.9 Hypothyroidism, unspecified; I25.2 Old myocardial infarction; G43.909 Migraine, unspecified, not intractable, without status migrainosus; Z98.890 Other specified postprocedural states; Z90.710 Acquired absence of both cervix and uterus; Z90.722 Acquired absence of ovaries, bilateral; Z91.041 Radiographic dye allergy status; Z91.018 Allergy to other foods; Z91.013 Allergy to seafood; Z88.0 Allergy status to penicillin; Z88.2 Allergy status to sulfonamides; Z88.1 Allergy status to other antibiotic agents
CPT/HCPCS: 36415; 80053; 81001; 83690; 83880; 85025; 87077; 87086; 87186; 96374; 96375; 96376; 99285; J2270; J2405